=== PATIENT | male | born 1960 | race Caucasian/White ===

== ENCOUNTER 2019-02-20 06:57 | Inpatient (IN) | payer MEDICAID ==
[2019-02-20] MEDS ORDERED: Ondansetron 4 MG/2 ML SDV IVPUSH ONE (07:28)
[2019-02-20] MEDS ORDERED: Sodium Chloride 0.9% 10 ML Syringe FLUSH PRN (07:28)
[2019-02-20] MEDS ORDERED: Sodium Chloride 0.9% 1,000 ML IV STA (07:28)
[2019-02-20] MEDS ORDERED: Pantoprazole 40 MG Vial IVPUSH ONE (07:29)
--- NOTE | 2019-02-20 07:54 | EDM.PDOC ---
ED HPI GENERAL MEDICAL PROBLEM - General Chief Complaint: Gastrointestinal Problem Stated Complaint: VOMITING BLOOD Time Seen by Provider: 02/20/19 07:28 Source of Information: Reports: Patient, Family History Limitations: Reports: No Limitations - History of Present Illness INITIAL COMMENTS - FREE TEXT/NARRATIVE: The patient presents for vomiting blood. He says it is like coffee grounds and dark. This started about 2 this morning. He has no pain. He has vomited multiple times but no nelly blood. He has never had this happen before. He says sometimes he will get some dark stools and he takes some pepto bismal and that will help. He does admit to drinking about a liter per day of whiskey. He will shake in the mornings if he does not get a drink. He has no fever, chills, cough, chest pain or shortness of breath. He has a history of hypertension and anxiety. His blood pressure dropped from 165 systolic to the low 100s when he was brought to room 1. Onset: Sudden Duration: Hour(s): (at 2am it started) Severity: Moderate Improves with: Reports: None Worsens with: Reports: None Associated Symptoms: Reports: Nausea/Vomiting. Denies: Chest Pain, Cough, Fever /Chills, Headaches, Shortness of Breath - Related Data Allergies Allergy/AdvReac Type Severity Reaction Status Date / Time No Known Allergies Allergy Verified 02/20/19 07:27 Past Medical History Cardiovascular History: Reports: Hypertension Social & Family History - Tobacco Use Smoking Status *Q: Current Every Day Smoker Years of Tobacco use: 40 Packs/Tins Daily: 1.5 ED ROS GENERAL - Review of Systems Review Of Systems: See Below Constitutional: Reports: No Symptoms HEENT: Reports: No Symptoms Respiratory: Reports: No Symptoms Cardiovascular: Reports: No Symptoms Endocrine: Reports: No Symptoms GI/Abdominal: Reports: Hematochezia, Nausea, Vomiting. Denies: Abdominal Pain, Diarrhea : Reports: No Symptoms Musculoskeletal: Reports: No Symptoms Skin: Reports: No Symptoms ED EXAM, GI/ABD - Physical Exam Exam: See Below Exam Limited By: No Limitations General Appearance: Alert, No Apparent Distress Ears: Normal External Exam Nose: Normal Inspection Head: Atraumatic, Normocephalic Neck: Normal Inspection Respiratory/Chest: No Respiratory Distress, Lungs Clear, Normal Breath Sounds Cardiovascular: Regular Rate, Rhythm, No Edema, No Murmur GI/Abdominal Exam: Soft, Non-Tender, No Organomegaly, No Mass Back Exam: Normal Inspection Extremities: Normal Inspection Course - Vital Signs Last Recorded V/S: Last Vital Signs Temp 97.5 F 02/20/19 07:25 Pulse 110 H 02/20/19 07:25 Resp 16 02/20/19 07:25 BP 161/85 H 02/20/19 07:25 Pulse Ox 100 02/20/19 07:25 Orthostatic Blood Pressure [ 105/71 Standing] Orthostatic Blood Pressure [ 161/85 Supine] - Orders/Labs/Meds Orders: Active Orders 24 hr Category Date Time Status Peripheral IV Care [RC] . DIRECTED Care 02/20/19 07:28 Active TYPE AND SCREEN [BBK] Stat Lab 02/20/19 07:28 Ordered Sodium Chloride 0.9% [Saline Flush] Med 02/20/19 07:28 Active 10 ml FLUSH ASDIRECTED PRN Sulfamethoxazole/Trimethoprim [Septra DS] Med 02/20/19 09:00 Active 1 tab PO BID ED Antiemetic Medication Reflex [OM.PC] Stat Oth 02/20/19 07:28 Ordered Peripheral IV Insertion Adult [OM.PC] Stat Oth 02/20/19 07:28 Ordered Medication Orders Sodium Chloride (Saline Flush) 10 ml FLUSH ASDIRECTED PRN PRN Reason: Keep Vein Open Last Admin: 02/20/19 07:44 Dose: 10 ml Trimethoprim/Sulfamethoxazole (Septra Ds) 1 tab PO BID HEIDE Labs: Laboratory Tests 02/20/19 02/20/19 02/20/19 Range/Units 07:30 07:30 07:30 WBC 11.86 H (4.23-9.07) K/mm3 RBC 3.63 L (4.63-6.08) M/mm3 Hgb 13.0 L D (13.7-17.5) gm/dl Hct 39.6 L (40.1-51.0) % MCV 109.1 H D (79.0-92.2) fl MCH 35.8 H (25.7-32.2) pg MCHC 32.8 (32.2-35.5) g/dl RDW Std Deviation 55.1 H (35.1-43.9) fL Plt Count 112 L (163-337) K/mm3 MPV 10.8 (9.4-12.3) fl Neut % (Auto) 77.6 H (34.0-67.9) % Lymph % (Auto) 11.8 L (21.8-53.1) % [place] % (Auto) 7.9 (5.3-12.2) % Eos % (Auto) 1.9 (0.8-7.0) Baso % (Auto) 0.6 (0.1-1.2) % Neut # (Auto) 9.20 H (1.78-5.38) K/mm3 Lymph # (Auto) 1.40 (1.32-3.57) K/mm3 [place] # (Auto) 0.94 H (0.30-0.82) K/mm3 Eos # (Auto) 0.23 (0.04-0.54) K/mm3 Baso # (Auto) 0.07 (0.01-0.08) K/mm3 Manual Slide Review Abnormal smear Sodium 137 (136-145) mEq/L Potassium 4.5 (3.5-5.1) mEq/L Chloride 103 (98-107) mEq/L Carbon Dioxide 21 (21-32) mEq/L Anion Gap 17.5 H (5-15) BUN 31 H (7-18) mg/dL Creatinine 1.0 (0.7-1.3) mg/dL Est Cr Clr Drug Dosing 96.24 mL/min Estimated GFR (MDRD) > 60 (>60) mL/min BUN/Creatinine Ratio 31.0 H (14-18) Glucose 144 H (74-106) mg/dL Calcium 8.9 (8.5-10.1) mg/dL Magnesium 1.7 L (1.8-2.4) mg/dl Total Bilirubin 3.0 H (0.2-1.0) mg/dL AST 99 H (15-37) U/L ALT 42 (16-63) U/L Alkaline Phosphatase 190 H (46-116) U/L Total Protein 7.4 (6.4-8.2) g/dl Albumin 3.3 L (3.4-5.0) g/dl Globulin 4.1 gm/dL Albumin/Globulin Ratio 0.8 L (1-2) Lipase 212 (73-393) U/L Ethyl Alcohol 0.07 (0.00) gm% Meds: Medications Generic Name Dose Route Start Last Admin Trade Name Freq PRN Reason Stop Dose Admin Sodium Chloride 10 ml 02/20/19 07:28 02/20/19 07:44 Saline Flush FLUSH 10 ml ASDIRECTED PRN Administration Keep Vein Open Trimethoprim/Sulfamethoxazole 1 tab 02/20/19 09:00 Septra Ds PO BID HEIDE Discontinued Medications Generic Name Dose Route Start Last Admin Trade Name Freq PRN Reason Stop Dose Admin Sodium Chloride 1,000 mls @ 1,000 mls/hr 02/20/19 07:28 02/20/19 07:42 Normal Saline IV 02/20/19 08:27 1,000 mls/hr .BOLUS STA Administration Metoclopramide HCl 10 mg 02/20/19 08:31 Reglan IVPUSH 02/20/19 08:32 ONETIME ONE Ondansetron HCl 4 mg 02/20/19 07:28 02/20/19 07:42 Zofran IVPUSH 02/20/19 07:29 4 mg ONETIME ONE Administration Pantoprazole Sodium 80 mg 02/20/19 07:29 02/20/19 07:43 Protonix Iv IVPUSH 02/20/19 07:30 80 mg BOLUS ONE Administration - Re-Assessments/Exams Free Text/Narrative Re-Assessment/Exam: 02/20/19 07:53 I ordered an IV NS 1L bolus, zofran 4mg IV, labs, and protonix 80mg IV. 02/20/19 08:33 His WBC was elevated at 11.86. His Hgb was a little low at 13. His platelets are low at 112. His anion gap is elevated at 17.5. His glucose is elevated at 144. His AST is elevated at 99. His total bili is elevated at 3. His magnesium is a little low at 1.7. His lipase is normal at 212. His ETOH is elevated at 0.07. He vomited again about 400mls of coffee ground emesis. I have ordered reglan 10mg IV. I feel he needs to be admitted. 02/20/19 08:[address] Garay and she agreed to the admission. Departure - Departure Time of Disposition: 08:55 Disposition: Admitted As Inpatient 66 Condition: Fair Clinical Impression: Orthostatic hypotension GI bleed Qualifiers: GI bleed type/associated pathology: gastritis Gastritis type: alcoholic Qualified Code(s): K29.21 - Alcoholic gastritis with bleeding Alcohol dependence Qualifiers: Substance use status: unspecified alcohol-induced disorder Qualified Code(s): F10.29 - Alcohol dependence with unspecified alcohol-induced disorder Gastritis Qualifiers: Gastritis type: alcoholic Chronicity: acute Gastritis bleeding: with bleeding Qualified Code(s): K29.21 - Alcoholic gastritis with bleeding - Discharge Information Referrals: PCP,Not In Area [Primary Care Provider] - Forms: ED Department Discharge Sepsis Event Note - Evaluation Sepsis Screening Result: No Definite Risk - Focused Exam Vital Signs: Vital Signs Temp Pulse Resp BP Pulse Ox 02/20/19 07:25 97.5 F 110 H 16 161/85 H 100 Date Exam was Performed: 02/20/19 Time Exam was Performed: 08:52 - My Orders Last 24 Hours: My Active Orders 02/20/19 07:28 Peripheral IV Care [RC] . DIRECTED TYPE AND SCREEN [BBK] Stat Sodium Chloride 0.9% [Saline Flush] 10 ml FLUSH ASDIRECTED PRN ED Antiemetic Medication Reflex [OM.PC] Stat Peripheral IV Insertion Adult [OM.PC] Stat 02/20/19 09:00 Sulfamethoxazole/Trimethoprim [Septra DS] 1 tab PO BID - Assessment/Plan Last 24 Hours: My Active Orders 02/20/19 07:28 Peripheral IV Care [RC] . DIRECTED TYPE AND SCREEN [BBK] Stat Sodium Chloride 0.9% [Saline Flush] 10 ml FLUSH ASDIRECTED PRN ED Antiemetic Medication Reflex [OM.PC] Stat Peripheral IV Insertion Adult [OM.PC] Stat 02/20/19 09:00 Sulfamethoxazole/Trimethoprim [Septra DS] 1 tab PO BID
[2019-02-20] MEDS ORDERED: Metoclopramide 10 MG/2 ML SDV IVPUSH ONE (08:31)
[2019-02-20] MEDS: Sulfamethoxazole/Trimethoprim 800-160 MG Tab PO SCH ×2 (09:00→20:32)
[2019-02-20] MEDS ORDERED: Ondansetron 4 MG Tab.DIS PO PRN (09:40)
[2019-02-20] MEDS ORDERED: Ondansetron 4 MG/2 ML SDV IV PRN (09:40)
[2019-02-20] MEDS ORDERED: LORazepam 1 MG Tab PO PRN (09:40)
[2019-02-20] MEDS: Nicotine 21 MG/24 Hr Patch TRDERM SCH (11:43)
[2019-02-20] MEDS: LORazepam 2 MG/ML SDV IVPUSH PRN ×2 (12:13→18:34)
--- NOTE | 2019-02-20 12:49 | US ---
Abdominal ultrasound: Multiple real-time images were obtained of the abdomen. Comparison: No prior abdominal imaging. Findings: Liver is extremely heterogeneous in appearance most likely representing cirrhotic change. No discrete focal abnormality is appreciated within the liver. Two gallbladder polyps are seen measuring 5.2 mm and 4.6 mm in size. No shadowing gallstones are seen. No gallbladder wall thickening or biliary duct dilatation is seen. Kidneys show no hydronephrosis or mass. Right kidney length is 12.2 cm and left kidney length is 12.3 cm. Aorta and pancreas are obscured from bowel gas. Inferior vena cava is patent. Portal vein shows normal hepatopedal flow. Spleen is enlarged at 14.1 cm in length. Impression: 1. Cirrhotic change within the liver. 2. Two small gallbladder polyps. 3. Obscured aorta and pancreas due to bowel gas. 4. Mild splenomegaly. 5. No additional abnormality is appreciated on abdominal ultrasound exam. Diagnostic code #3 This report was dictated in [place] Standard Time
[2019-02-20] MEDS: Lactated Ringers 1,000 ML IV SCH ×2 (17:39→22:54)
--- NOTE | 2019-02-20 18:50 | PCM.HP.2 ---
H&P History of Present Illness - General Date of Service: 02/20/19 Admit Problem/Dx: Admission Diagnosis/Problem Admission Diagnosis/Problem GI bleed not requiring more than 4 units of blood in 24 hours, ICU, or surgery - History of Present Illness Initial Comments - Free Text/Narative: This is a 58 year old male with past medical history of HTN and anxiety who came to the ED around 7 AM complaining of multiple episodes of coffee ground emesis. As per patient he woke up around 2AM this morning with nausea and had a large vomiting episode described as coffee ground emesis and multiple episodes, around 5, after that for which he decided to come to the ED. He denied any abdominal pain, dizziness, chest pain, palpitations, nausea, diarrhea, melena, constipation. States he was previously on Aleve daily for approximately 1-1.5yrs which he stopped on his own after he had a couple of episodes of black stool. - Related Data Allergies/Adverse Reactions: Allergies Allergy/AdvReac Type Severity Reaction Status Date / Time No Known Allergies Allergy Verified 02/20/19 07:27 Home Medications: Home Meds Doxepin HCl [Doxepin] 100 mg PO BEDTIME 02/20/19 [History] FLUoxetine HCl [Fluoxetine HCl] 60 mg PO DAILY 02/20/19 [History] amLODIPine Besylate [Amlodipine Besylate] 5 mg PO DAILY 02/20/19 [History] lisinopriL [Lisinopril] 20 mg PO DAILY 02/20/19 [History] Past Medical History HEENT History: Reports: Hard of Hearing, Impaired Vision Cardiovascular History: Reports: Angina, Hypertension, SOB on Exertion Respiratory History: Reports: COPD, Sleep Apnea, SOB Gastrointestinal History: Reports: GI Bleed Musculoskeletal History: Reports: Arthritis, Back Pain, Chronic Psychiatric History: Reports: Addiction, Anxiety, Depression, Panic Attack - Infectious Disease History Infectious Disease History: Reports: Chicken Pox - Past Surgical History HEENT Surgical History: Reports: Tonsillectomy Cardiovascular Surgical History: Reports: None Respiratory Surgical History: Reports: None GI Surgical History: Reports: None Musculoskeletal Surgical History: Reports: None Social & Family History - Family History HEENT: Reports: None Cardiac: Reports: [place] Respiratory: Reports: None GI: Reports: None : Reports: None OBGYN: Reports: None Musculoskeletal: Reports: None Neurological: Reports: None Endocrine/Metabolic: Reports: Diabetes, type II - Tobacco Use Smoking Status *Q: Current Every Day Smoker Years of Tobacco use: 45 Packs/Tins Daily: 1.5 - Caffeine Use Caffeine Use: Reports: Coffee - Alcohol Use Days Per Week of Alcohol Use: 7 Number of Drinks Per Day: 30 Total Drinks Per Week: 210 Date of Last Drink: 02/20/19 Time of Last Drink: 00:00 - Recreational Drug Use Recreational Drug Use: No H&P Review of Systems - Review of Systems: Review Of Systems: See Below General: Denies: Fever, Chills, Malaise, Weakness, Fatigue, Night Sweats, Diaphoresis, Decreased Appetite, Weight Loss HEENT: Denies: Headaches, Hearing Changes, Rhinitis, Post Nasal Drip, Sinus Congestion, Sore Throat, Vertigo, Visual Changes Pulmonary: Denies: Shortness of Breath, Wheezing, Pleuritic Chest Pain, Cough, Sputum, Hemoptysis Cardiovascular: Denies: Chest Pain, Palpitations, Dyspnea on Exertion, Orthopnea , PND, Edema, Lightheadedness, Syncope, Claudication, Blood Pressure Problem Gastrointestinal: Reports: Black Stool, Distension, Nausea, Vomiting (coffee ground). Denies: Abdominal Pain, Anorexia, Bloody Stool, Constipation, Diarrhea , Decreased Appetite, Difficulty Swallowing, Flatus, Hematemesis, Hematochezia, Melena Genitourinary: Denies: Dysuria, Frequency, Burning, Pain, Urgency, Incontinence , Hematuria Musculoskeletal: Denies: Joint Pain, Joint Swelling, Muscle Pain, Muscle Stiffness Skin: Denies: Cyanosis, Jaundice, Mottled, Pallor, Diaphoresis, Dryness, Bruising, Pruritis, Erythema, Wound Psychiatric: Denies: Confusion, Depression Neurological: Denies: Confusion, Dizziness, Headache, Numbness Exam - Exam Exam: See Below - Vital Signs Vital Signs: Last Vital Signs Temp 99.6 F 02/20/19 16:00 Pulse 113 H 02/20/19 09:40 Resp 20 02/20/19 16:00 BP 144/87 H 02/20/19 16:00 Pulse Ox 97 02/20/19 16:00 Orthostatic Blood Pressure [ 105/71 Standing] Orthostatic Blood Pressure [ 161/85 Supine] Weight: 117.027 kg - Exam General: Alert, Oriented, Cooperative. No: Mild Distress HEENT: Conjunctiva Clear, EACs Clear, EOMI, Other (oral mucosa is dry, no stigmas of bleeding). No: Hearing Intact Neck: Supple, Trachea Midline, +2 Carotid Pulse wo Bruit. No: Lymphadenopathy Lungs: Clear to Auscultation, Normal Respiratory Effort. No: Crackles, Rales, Rhonchi, Wheezing Cardiovascular: Regular Rate, Regular Rhythm. No: Systolic Murmur, Diastolic Murmur, Rubs, Gallop/S3, Gallop/S4 GI/Abdominal Exam: Distended, Abnormal Bowel Sounds. No: Guarding, Rigid, Rebound Back Exam: Normal Inspection Extremities: Normal Inspection, No Pedal Edema Skin: Other (pale) - Patient Data Result Diagrams: 02/20/19 18:25 02/20/19 07:30 Sepsis Event Note - Evaluation Sepsis Screening Result: No Definite Risk - Focused Exam Vital Signs: Vital Signs Temp Pulse Resp BP Pulse Ox 02/20/19 16:00 99.6 F 20 144/87 H 97 02/20/19 12:00 18 131/77 97 02/20/19 09:40 99 F 113 H 18 136/75 97 02/20/19 07:25 97.5 F 110 H 16 161/85 H 100 Date Exam was Performed: 02/20/19 Time Exam was Performed: 18:45 - Problem List (1) GI bleed SNOMED Code(s): 14524486 ICD Code: K92.2 - GASTROINTESTINAL HEMORRHAGE, UNSPECIFIED Status: Acute Current Visit: Yes Qualifiers: GI bleed type/associated pathology: gastritis Gastritis type: alcoholic Qualified Code(s): K29.21 - Alcoholic gastritis with bleeding (2) Macrocytic anemia SNOMED Code(s): 02610751 ICD Code: D53.9 - NUTRITIONAL ANEMIA, UNSPECIFIED Status: Acute Current Visit: Yes (3) Alcohol abuse with alcohol-induced disorder SNOMED Code(s): 799211513, 579147049 ICD Code: F10.19 - ALCOHOL ABUSE WITH UNSPECIFIED ALCOHOL-INDUCED DISORDER Status: Acute Current Visit: Yes (4) Hypertension SNOMED Code(s): 22380564 ICD Code: I10 - ESSENTIAL (PRIMARY) HYPERTENSION Status: Acute Current Visit: Yes (5) Thrombocytopenia SNOMED Code(s): 261029233 ICD Code: D69.6 - THROMBOCYTOPENIA, UNSPECIFIED Status: Acute Current Visit: Yes (6) Hyperbilirubinemia SNOMED Code(s): 68563384 ICD Code: E80.6 - OTHER DISORDERS OF BILIRUBIN METABOLISM Status: Acute Current Visit: Yes (7) Hypoalbuminemia SNOMED Code(s): 930197576 ICD Code: E88.09 - OTH DISORDERS OF PLASMA-PROTEIN METABOLISM, NEC Status: Acute Current Visit: Yes (8) Abnormal liver enzymes SNOMED Code(s): 114451515 ICD Code: R74.8 - ABNORMAL LEVELS OF OTHER SERUM ENZYMES Status: Acute Current Visit: Yes (9) Hypomagnesemia SNOMED Code(s): 221104997 ICD Code: E83.42 - HYPOMAGNESEMIA Status: Acute Current Visit: Yes (10) Abnormal colonoscopy SNOMED Code(s): 755617575 ICD Code: R93.3 - ABNORMAL FINDINGS ON DX IMAGING OF PRT DIGESTIVE TRACT Status: Acute Current Visit: Yes (11) Smoker SNOMED Code(s): 42929772 ICD Code: F17.200 - NICOTINE DEPENDENCE, UNSPECIFIED, UNCOMPLICATED Status : Acute Current Visit: Yes (12) Alcohol dependence SNOMED Code(s): 45923736 ICD Code: F10.20 - ALCOHOL DEPENDENCE, UNCOMPLICATED Status: Acute Current Visit: Yes Qualifiers: Substance use status: unspecified alcohol-induced disorder Qualified Code(s ): F10.29 - Alcohol dependence with unspecified alcohol-induced disorder (13) Orthostatic hypotension SNOMED Code(s): 33912860 ICD Code: I95.1 - ORTHOSTATIC HYPOTENSION Status: Acute Current Visit: Yes (14) Obstructive sleep apnea SNOMED Code(s): 09900744 ICD Code: G47.33 - OBSTRUCTIVE SLEEP APNEA (ADULT) (PEDIATRIC) Status: Acute Current Visit: Yes (15) Anxiety SNOMED Code(s): 23304980 ICD Code: F41.9 - ANXIETY DISORDER, UNSPECIFIED Status: Acute Current Visit: Yes Problem List Initiated/Reviewed/Updated: Yes Assessment/Plan Comment:: GI bleed Macrocytic anemia Orthostatic hypotension Abnormal colonoscopy Alcohol abuse with alcohol-induced disorder 5 episodes of coffee ground emesis today Hb 13.1 on admission with macrocytosis Previous colonoscopy 10 years ago was abnormal, patient was told he had cancerous polyps and needed to return in 3 years--> lost follow up Likely has cirrhosis from alcohol abuse and varices Significant abdominal distention with concern for ascites PLAN - Pantoprazole 40mg IV q12h - Trend Hb - NPO - Anemia work up - Bactrim for SBP prophylaxis, ciprofloxacin not available - Consult surgery if Hb continues to drop Alcohol abuse with alcohol-induced disorder Drinks 2-3 1.750L bottles of whisky per day for the past 30 years Last drink was midnight PLAN - Admit to ICU - [facility] protocol - Banana bag - Thiamine supplementation - Folic acid supplementation Thrombocytopenia Hyperbilirubinemia Hypoalbuminemia Abnormal liver enzymes Concern for alcoholic cirrhosis Chronic alcohol abuse + abdominal distention w/fluid wave MELD score PLAN - Complete abdominal US - INR for MELD score in AM - Cirrhosis work up Smoker Currently smoked 1.5 ppd for the past 40 years PLAN - Nicotine patch during admission - Smoking cessation counseling Hypertension Home management with lisinopril and amlodipine Active GI bleed with hypotension PLAN - Hold home medications Obstructive sleep apnea Diagnosed 1 year ago Verbalizes compliance with CPAP at 14 PLAN - Ask to bring CPAP - Use CPAP every night Anxiety Takes Fluoxetine and Doxepin at home PLAN - Hold while NPO
[2019-02-20] MEDS: Pantoprazole 40 MG Vial IVPUSH SCH (20:32)
[2019-02-21] MEDS: LORazepam 2 MG/ML SDV IVPUSH PRN ×2 (01:49→11:47)
[2019-02-21] MEDS: Lactated Ringers 1,000 ML IV SCH ×2 (04:05→09:43)
[2019-02-21] MEDS ORDERED: cefTRIAXone 2 GM in Sodium Chloride 0.9% 100 ML IV SCH (07:01)
[2019-02-21] MEDS: Pantoprazole 40 MG Vial IVPUSH SCH (07:23)
[2019-02-21] MEDS: Nicotine 21 MG/24 Hr Patch TRDERM SCH (09:16)
[2019-02-21] MEDS ORDERED: Thiamine 200 MG/2 ML MDV IVPUSH SCH (11:30)
[2019-02-21] MEDS ORDERED: Folic Acid 50 MG/10 ML MDV IV SCH (11:30)
--- NOTE | 2019-02-22 19:30 | PCM.DCSUM1 ---
Discharge Summary - Hospital Course HPI Initial Comments: This is a 58 year old male with past medical history of HTN and anxiety who came to the ED around 7 AM complaining of multiple episodes of coffee ground emesis. As per patient he woke up around 2AM this morning with nausea and had a large vomiting episode described as coffee ground emesis and multiple episodes, around 5, after that for which he decided to come to the ED. He denied any abdominal pain, dizziness, chest pain, palpitations, nausea, diarrhea, melena, constipation. States he was previously on Aleve daily for approximately 1-1.5yrs which he stopped on his own after he had a couple of episodes of black stool. - Discharge Data Discharge Date: 02/21/19 Discharge Disposition: DC/Tfer to [facility] 02 Condition: Stable - Referral to Home Health Primary Care Physician: PCP Not In Area - Discharge Diagnosis/Problem(s) (1) GI bleed SNOMED Code(s): 93813855 ICD Code: K92.2 - GASTROINTESTINAL HEMORRHAGE, UNSPECIFIED Status: Acute Qualifiers: GI bleed type/associated pathology: gastritis Gastritis type: alcoholic Qualified Code(s): K29.21 - Alcoholic gastritis with bleeding (2) Macrocytic anemia SNOMED Code(s): 20819643 ICD Code: D53.9 - NUTRITIONAL ANEMIA, UNSPECIFIED Status: Acute (3) Alcohol abuse with alcohol-induced disorder SNOMED Code(s): 703474050, 357016968 ICD Code: F10.19 - ALCOHOL ABUSE WITH UNSPECIFIED ALCOHOL-INDUCED DISORDER Status: Acute (4) Hypertension SNOMED Code(s): 38165250 ICD Code: I10 - ESSENTIAL (PRIMARY) HYPERTENSION Status: Acute (5) Thrombocytopenia SNOMED Code(s): 172768096 ICD Code: D69.6 - THROMBOCYTOPENIA, UNSPECIFIED Status: Acute (6) Hyperbilirubinemia SNOMED Code(s): 16478334 ICD Code: E80.6 - OTHER DISORDERS OF BILIRUBIN METABOLISM Status: Acute (7) Hypoalbuminemia SNOMED Code(s): 985891942 ICD Code: E88.09 - OTH DISORDERS OF PLASMA-PROTEIN METABOLISM, NEC Status: Acute (8) Abnormal liver enzymes SNOMED Code(s): 817786035 ICD Code: R74.8 - ABNORMAL LEVELS OF OTHER SERUM ENZYMES Status: Acute (9) Hypomagnesemia SNOMED Code(s): 645620417 ICD Code: E83.42 - HYPOMAGNESEMIA Status: Acute (10) Abnormal colonoscopy SNOMED Code(s): 869022578 ICD Code: R93.3 - ABNORMAL FINDINGS ON DX IMAGING OF PRT DIGESTIVE TRACT Status: Acute (11) Smoker SNOMED Code(s): 29322803 ICD Code: F17.200 - NICOTINE DEPENDENCE, UNSPECIFIED, UNCOMPLICATED Status : Acute (12) Alcohol dependence SNOMED Code(s): 61379440 ICD Code: F10.20 - ALCOHOL DEPENDENCE, UNCOMPLICATED Status: Acute Qualifiers: Substance use status: unspecified alcohol-induced disorder Qualified Code(s ): F10.29 - Alcohol dependence with unspecified alcohol-induced disorder (13) Orthostatic hypotension SNOMED Code(s): 28685515 ICD Code: I95.1 - ORTHOSTATIC HYPOTENSION Status: Acute (14) Obstructive sleep apnea SNOMED Code(s): 35596260 ICD Code: G47.33 - OBSTRUCTIVE SLEEP APNEA (ADULT) (PEDIATRIC) Status: Acute (15) Anxiety SNOMED Code(s): 79612914 ICD Code: F41.9 - ANXIETY DISORDER, UNSPECIFIED Status: Acute - Patient Summary/Data Consults: Consultations 02/21/19 06:33 Consult to Physician [CONS] Urgent Hospital Course: Patient admitted for upper GI bleed for trending Hb and possible EGD. Hemoglobin continued to trend down and patient continued to have melenous bowel movements and 1 episode of hematemesis Decision was made that patient required EGD with concern for esophageal varices for which care had to be escalated for possible banding of varices. Patient was transferred to [place] - Patient Instructions Diet: Usual Diet as Tolerated Activity: As Tolerated - Discharge Plan Home Medications: Home Meds Doxepin HCl [Doxepin] 100 mg PO BEDTIME 02/20/19 [History] FLUoxetine HCl [Fluoxetine HCl] 60 mg PO DAILY 02/20/19 [History] amLODIPine Besylate [Amlodipine Besylate] 5 mg PO DAILY 02/20/19 [History] lisinopriL [Lisinopril] 20 mg PO DAILY 02/20/19 [History] Patient Handouts: Alcohol Use Disorder, Gastrointestinal Bleeding, [id number] , Steps to Quit Smoking Forms: ED Department Discharge Referrals: Altringer,Malgorzata, FLIGHT ATTENDANT [Ordering Only Provider] - - Discharge Summary/Plan Comment DC Time >30 min.: Yes - General Info Date of Service: 02/21/19 Subjective Update: Feeling ok Still having abdominal discomfort and nausea CIWA - 0 - Patient Data Vitals - Most Recent: Last Vital Signs Temp 98.7 F 02/21/19 08:00 Pulse 115 H 02/20/19 21:00 Resp 20 02/21/19 08:00 BP 111/66 02/21/19 08:00 Pulse Ox 95 02/21/19 08:00 Orthostatic Blood Pressure [ 105/71 Standing] Orthostatic Blood Pressure [ 161/85 Supine] Weight - Most Recent: 117.1 kg - Exam General: Reports: Alert, Oriented, Cooperative, No Acute Distress HEENT: Reports: Pupils Equal, Pupils Reactive, EOMI, Mucous Membr. Moist/[place] Neck: Reports: Trachea Midline, No JVD, +2 Carotid Pulse wo Bruit Lungs: Reports: Clear to Auscultation, Normal Respiratory Effort. Denies: Crackles, Rales, Rhonchi, Rub, Stridor, Wheezing Cardiovascular: Reports: Regular Rate, Regular Rhythm. Denies: Murmurs, Gallops , Rubs GI/Abdominal Exam: Normal Bowel Sounds, Distended Back Exam: Reports: Normal Inspection Extremities: Normal Inspection, Normal Range of Motion, Non-Tender, No Pedal Edema Skin: Reports: Warm, Dry Neurological: Reports: No New Focal Deficit Psy/Mental Status: Reports: Alert
== END 2019-02-21 12:24 | DRG 378 ==
LOC: JD.ED 06:57 → JD.ICU 09:40
PROVIDERS: ADMIT Internal Medicine; ATTEND Internal Medicine
DX: K29.21 Alcoholic gastritis with bleeding (principal); F10.29 Alcohol dependence with unspecified alcohol-induced disorder; F17.200 Nicotine dependence, unspecified, uncomplicated; F10.288 Alcohol dependence with other alcohol-induced disorder; Y90.5 Blood alcohol level of 100-119 mg/100 ml; D53.9 Nutritional anemia, unspecified; I10 Essential (primary) hypertension; D69.6 Thrombocytopenia, unspecified; E80.6 Other disorders of bilirubin metabolism; R74.8 Abnormal levels of other serum enzymes; E83.42 Hypomagnesemia; R93.3 Abnormal findings on diagnostic imaging of other parts of digestive tract; I95.1 Orthostatic hypotension; G47.33 Obstructive sleep apnea (adult) (pediatric); F41.9 Anxiety disorder, unspecified; K92.0 Hematemesis; I85.00 Esophageal varices without bleeding; J44.9 Chronic obstructive pulmonary disease, unspecified; G47.30 Sleep apnea, unspecified; F41.0 Panic disorder [episodic paroxysmal anxiety]; F32.9 Major depressive disorder, single episode, unspecified; F17.210 Nicotine dependence, cigarettes, uncomplicated; Z90.89 Acquired absence of other organs; Z79.899 Other long term (current) drug therapy
CPT/HCPCS: 36415; 80053; 80320; 83690; 83735; 85025; 86850; 86900; 86901; A9270; C9113; J2405; J2765; J7030; 76700; 76700-26; 80048; 80074; 82390; 82607; 82728; 82746; 83516; 84100; 85045; 85610; 96361; 96374; 96375; 99285; 99285-25; G0480; J0696; J2060; J2354; J3411; J7050; J7120

== ENCOUNTER 2021-07-02 15:46 | Emergency (ER) | payer BC, MEDICAID ==
[2021-07-02] MEDS ORDERED: Ondansetron 4 MG/2 ML SDV IVPUSH ONE (19:35)
[2021-07-02] MEDS ORDERED: Pantoprazole 40 MG Vial IVPUSH ONE (19:35)
[2021-07-02] MEDS ORDERED: chlordiazePOXIDE 25 MG Cap PO ONE (23:27)
[2021-07-03] MEDS ORDERED: chlordiazePOXIDE 25 MG Cap PO ONE (01:26)
== END 2021-07-03 01:30 ==
LOC: JD.ED 15:46
DX: F10.10 Alcohol abuse, uncomplicated (principal); J44.9 Chronic obstructive pulmonary disease, unspecified; I10 Essential (primary) hypertension; Z86.16 Personal history of COVID-19; Z72.0 Tobacco use; Z79.899 Other long term (current) drug therapy; Z20.822 Contact with and (suspected) exposure to COVID-19; Y90.0 Blood alcohol level of less than 20 mg/100 ml
CPT/HCPCS: 36415; 71260; 74177; 80053; 80306; 80307; 83690; 83735; 85014; 85018; 85025; 85610; 87635; 96374; 96375; 99284; A9270; C9113; J2405; 99283; U0002

== ENCOUNTER 2021-07-07 10:07 | Emergency (ER) | payer BC, MEDICAID ==
[2021-07-07] MEDS ORDERED: Dextrose 5%-Lactated Ringers 1,000 ML IV SCH (11:30)
[2021-07-07] MEDS ORDERED: Thiamine 500 MG in Sodium Chloride 0.9% 100 ML IV ONE ×2 (14:24→15:30)
[2021-07-07] MEDS ORDERED: Lactated Ringers 1,000 ML IV SCH (15:00)
== END 2021-07-07 17:55 ==
LOC: JD.ED 10:07
DX: R27.0 Ataxia, unspecified (principal); R41.0 Disorientation, unspecified; D69.6 Thrombocytopenia, unspecified; I10 Essential (primary) hypertension; J44.9 Chronic obstructive pulmonary disease, unspecified; Z79.899 Other long term (current) drug therapy; Z86.16 Personal history of COVID-19; Z72.0 Tobacco use; Z20.822 Contact with and (suspected) exposure to COVID-19
CPT/HCPCS: 36415; 70450; 80053; 80307; 82140; 83735; 84443; 85018; 85025; 85610; 85730; 87635; 93005; 96365; 99285; J3411; J7120; J7121; U0002

== ENCOUNTER 2021-09-20 06:34 | Emergency (ER) | payer MEDICAID ==
[2021-09-20] MEDS ORDERED: Ondansetron 4 MG/2 ML SDV IVPUSH ONE (06:52)
[2021-09-20] MEDS ORDERED: HYDROmorphone 0.5 MG/0.5 ML Syringe IVPUSH ONE (06:52)
[2021-09-20] MEDS ORDERED: Sodium Chloride 0.9% 1,000 ML IV SCH (07:00)
[2021-09-20] MEDS ORDERED: Magnesium Citrate Solution 296 ML Bottle PO ONE (09:05)
== END 2021-09-20 09:25 | disposition home or self-care (01) ==
LOC: JD.ED 06:34
DX: R10.84 Generalized abdominal pain (principal); J44.9 Chronic obstructive pulmonary disease, unspecified; I10 Essential (primary) hypertension; F17.210 Nicotine dependence, cigarettes, uncomplicated; Z79.899 Other long term (current) drug therapy; Z86.16 Personal history of COVID-19
CPT/HCPCS: 36415; 71045; 74019; 80053; 83690; 83735; 84484; 85007; 85027; 93005; 96361; 96374; 96375; 99285; A9270; J1170; J2405; J7030; 93010; 99284